=== PATIENT | female | born 1970 | race Caucasian/White ===

== ENCOUNTER 2018-01-09 23:24 | Observation (INO) | payer OTHER ==
[2018-01-10 00:08] LABS: Bilirubin Negative (Negative); Blood, Urine Negative (Negative); Clarity CLEAR (Clear); Glucose, Urine (Dipstick) Negative (Negative); Leukocyte Negative (Negative); Nitrite Negative (Negative); Protein, Urine (Dipstick) Negative (Neg-Trace); Specific Gravity, Urine 1.029 (1.002-1.036); Urobilinogen 0.2 mg/dL (0.2-1.0)
[2018-01-10 00:17] LABS: #Lymphocytes 2.3 thou/uL (1.20-3.40); #Monocytes 0.6 thou/uL (0.11-0.59); %Basophils 0.3 % (0.0-1.0); %Eosinophils 0.2 % (0.0-10.0); %Lymphocytes 23.5 % (21.0-51.0); %Neutrophils 70.1 % (42.0-75.0); Hemoglobin 13.5 g/dL (12.0-16.0); Mean Corpuscular HGB CONC 34.7 g/dL (32.0-36.0); Mean Corpuscular Hemoglobin 32.2 pg (27.0-31.0); Mean Corpuscular Volume 92.9 fL (78.0-98.0); Mean Platelet Volume 5.6 fL (7.4-10.4); Platelet Count 360 thou/uL (130-400); RBC Distribution Width 11.2 % (11.5-14.5); Red Blood Cell (RBC) Count 4.17 mill/uL (4.20-5.40)
[2018-01-10 00:40] LABS: ALT (SGPT) 16 U/L (8-55); AST (SGOT) 16 U/L (5-34); Albumin 4.5 g/dL (3.5-5.0); Alkaline Phosphatase 58 U/L (40-150); Anion Gap 11 mmol/L (10-20); BUN (Urea Nitrogen) 14 mg/dL (7.0-18.7); Bilirubin, Total 0.7 mg/dL (0.2-1.2); Calc. Creatinine Clearance 0 mL/min (70-130); Calcium 9.4 mg/dL (7.8-10.44); Carbon Dioxide 26 mmol/L (22-29); Chloride 103 mmol/L (98-107); Estimated GFR-MDRD 86; Globulin 3.1 g/dL (2.4-3.5); Glucose 109 mg/dL (70-105); Protein, Total 7.6 g/dL (6.0-8.3); Sodium 136 mmol/L (136-145)
[2018-01-10] MEDS ORDERED: Ketorolac Tromethamine 30 MG/ML VIAL ONE (01:11)
[2018-01-10] MEDS ORDERED: Ondansetron ODT 4 MG TAB ONE (01:11)
[2018-01-10] MEDS ORDERED: Piperacillin/Tazobactam 4.5 GM VIAL ONE (02:18)
[2018-01-10] MEDS ORDERED: Ondansetron ODT 4 MG TAB SL PRN (02:49)
[2018-01-10] MEDS ORDERED: Ondansetron HCl/PF 4 MG/2 ML Vial IVP PRN ×3 (02:49→12:30)
[2018-01-10] MEDS ORDERED: Ketorolac Tromethamine 30 MG/ML VIAL IVP PRN (02:52)
[2018-01-10] MEDS: Sodium Chloride 0.9% 1,000 ML IV SCH ×2 (03:20→08:53)
[2018-01-10 03:54] VITALS: BMI 30.9
[2018-01-10 06:25] LABS: Pregnancy Test - Urine (BHCG) Negative (Negative); Pregu Control Background? CLEAR/WHITE (CLR/WHITE); Pregu Control Bar Appear? YES (CONTROL BAR); Specific Gravity 1.029 (1.002-1.036)
[2018-01-10] MEDS ORDERED: Morphine 4 MG/ML Carpuject SLOW IVP PRN (08:07)
--- NOTE | 2018-01-10 08:23 | HP ---
CHIEF COMPLAINT: Right upper quadrant abdominal pain. HISTORY: The patient is a 47-year-old female with an 18-hour history of right upper quadrant pain as sociated with nausea, vomiting, no fever, no previous episodes. PAST MEDICAL HISTORY: Asthma. MEDICATIONS: Advair and Lipitor. PAST SURGICAL HISTORY: Left partial mastectomy, section, tubal ligation, knee surgery. She had debridement of a spider bite. FAMILY HISTORY: Hypertension, diabetes and hyperlipidemia. SOCIAL HISTORY: . No tobacco, no alcohol. She is an inmate. PHYSICAL EXAMINATION: VITAL SIGNS: Temperature 98.1, pulse 56, blood pressure 111/72. GENERAL: She is in pain. She is obese. HEENT: No jaundice. LUNGS: Clear. HEART: Regular rate and rhythm. ABDOMEN: Soft, tender in the right upper quadrant. Positive Rovsing. EXTREMITIES: Unremarkable. LABORATORY: White count 10, H&H 13 and 38, platelet count 360. Electrolytes are fine. LFTs normal. Ultrasound shows gallstones, thickened wall. ASSESSMENT: Acute cholecystitis. PLAN: Laparoscopic cholecystectomy. CONSENT: I have discussed the planned procedure as well as risk of bleeding, infection, injury to bi le duct, injury to bowel, need to open. She understands and gives informed consent.
[2018-01-10] MEDS ORDERED: cefOXitin 2 GM in Sodium Chloride 0.9% 100 ML IVPB SCH (08:30)
[2018-01-10] MEDS: Piperacillin/Tazobactam 4.5 GM in Sodium Chloride 0.9% 100 ML IVPB SCH ×2 (08:58→14:45)
--- NOTE | 2018-01-10 09:57 | ULT ---
PRELIMINARY REPORT/[facility]/EMERGENTY AFTER-HOURS PROCEDURE US Abdomen Limited, Right Upper Quadrant CLINICAL HISTORY: 47 years old, female; Pain and signs and symptoms; Nausea and vomiting; Abdominal pain; Localized; Ot her: Ruq - pain radiates to back TECHNIQUE: Real-time ultrasound of the right upper quadrant with image documentation. COMPARISON: No relevant prior studies available. FINDINGS: Liver: Liver is echogenic appearance compatible fatty liver. No intrahepatic bile duct dilation. Gallbladder: There is a nonmobile gallstone at the gallbladder neck. Pericholecystic fluid is present . There is gallbladder wall thickening measuring 3 mm. A positive sonographic James sign is reported . Common bile duct: CBD measures 4 mm in diameter. No stones. No dilation. Pancreas: Unremarkable as visualized. Right kidney: RIGHT kidney measures 9.4 x 4.2 x 4.1 cm. No stones. No hydronephrosis. IMPRESSION: Acute cholecystitis. Thank you for allowing us to participate in the care of your patient. Dictated and Authenticated by: Jonny Craft MD 01/10/2018 3:00 AM Central Time ([place] & [place]) FINAL REPORT EMERGENT AFTER HOURS RIGHT UPPER QUADRANT ULTRASOUND: DATE: 01/30/18. HISTORY: Right upper quadrant abdominal pain with pain radiating to the back. The patient has nausea and vomi ting. IMPRESSION: 1. Evidence for cholecystitis with a gallbladder calculus and borderline thickening of the gallbladd er wall with a trace amount of pericholecystic fluid. 2. The common duct is normal in caliber measuring 0.4 cm 3. Clinical correlation for cholecystitis is recommended. 4. Findings are in agreement with the preliminary report by [id number]. POS: NO
[2018-01-10] MEDS ORDERED: cefOXitin 2 GM VIAL ONE (10:29)
[2018-01-10] MEDS ORDERED: Sodium Chloride 0.9% 100 ML ONE (10:29)
[2018-01-10] MEDS ORDERED: Bupivacaine/Epinephrine 0.25% 30 ML VIAL ONE (10:36)
[2018-01-10] MEDS ORDERED: Fentanyl 250 MCG/5 ML VIAL ONE (10:42)
[2018-01-10] MEDS ORDERED: Ondansetron HCl/PF 4 MG/2 ML Vial ONE (11:22)
[2018-01-10] MEDS ORDERED: Dexamethasone 20 MG/5 ML VIAL ONE (11:22)
[2018-01-10] MEDS ORDERED: Lidocaine 1% PF 5 ML VIAL ONE (11:22)
[2018-01-10] MEDS ORDERED: PROPOFOL 200 MG/20 ML VIAL ONE (11:22)
[2018-01-10] MEDS ORDERED: Glycopyrrolate 0.2 MG/ML 5 ML SYRINGE ONE (11:22)
[2018-01-10] MEDS ORDERED: Promethazine HCl 25 MG/ML VIAL SLOW IVP PRN (12:15)
[2018-01-10] MEDS ORDERED: Promethazine HCl 25 MG/ML VIAL IM PRN ×2 (12:15→12:30)
[2018-01-10] MEDS ORDERED: Meperidine HCl/PF 25 MG/ML VIAL SLOW IVP PRN (12:15)
[2018-01-10] MEDS ORDERED: Mag-Al 1200 mg/1200 mg/30 ML UDCUP PO PRN (12:30)
[2018-01-10] MEDS ORDERED: Dextrose 50% Abboject 50 ML SYRINGE SLOW IVP PRN (12:30)
[2018-01-10] MEDS ORDERED: HYDROcodone/Acetaminophen 10/325 mg Tablet PO PRN (12:30)
[2018-01-10] MEDS ORDERED: Dextrose 5% in Water 1,000 ML IV PRN (12:30)
[2018-01-10] MEDS ORDERED: Calcium Carbonate 500 MG ChewTAB PO PRN (12:30)
[2018-01-10] MEDS ORDERED: hydrALAZINE 20 MG/ML VIAL SLOW IVP PRN (12:30)
--- NOTE | 2018-01-10 12:39 | OP ---
PREOPERATIVE DIAGNOSIS: Acute cholecystitis. SURGEON: Guillermo Neri M.D. PROCEDURE PERFORMED: Laparoscopic cholecystectomy. INDICATIONS: A 47-year-old female with a couple day history of right upper quadrant pain associated with nausea, vomiting, subjective fever, and leukocytosis. Ultrasound showing thickened gallbladder wall. FINDINGS: Acute cholecystitis with thickened gallbladder wall, small caliber cystic duct. PROCEDURE: After informed consent was obtained, the patient was taken to the operating room and give n general endotracheal anesthesia. She was placed in the supine position. The abdomen was prepped a nd draped in usual fashion. Local anesthesia infiltrated subcutaneously and deep. A subumbilical in cision was performed. The subcu divided sharply. The fascia grasped two stay sutures of [address] aced to either side of midline. Midline incised. Digital palpation revealed no local adhesions. A blunt 10-12 mm trocar inserted. Pneumoperitoneum was created to a pressure of 15 mmHg. Zero-degree laparoscope inserted under direct vision, three 5 mm ports placed subcostally. The gallbladder grasp ed advanced superiorly. The peritoneum was lysed distally and revealed cystic duct artery and critic al view. These structures were triply ligated and divided. Gallbladder removed from its fossa utili zing electrocautery, removed from the abdomen in an Endosac through the umbilical incision. Hemostas is was assured. Trocars and retractors removed. The fascia closed with interrupted 0 Vicryl suture. The skin closed with interrupted 4-0 Rapide. Dermabond applied. The patient tolerated the procedu re well and was transferred to recovery in good condition. Sponge and needle count verified correct x2.
[2018-01-10] MEDS ORDERED: Fentanyl 100 MCG/2 ML VIAL ONE (13:35)
[2018-01-10] MEDS: Lactated Ringer's 1,000 ML IV SCH ×2 (14:46→21:23)
[2018-01-10] MEDS: HYDROcodone/Acetaminophen 10/325 mg Tablet PO PRN (17:34)
[2018-01-10] MEDS: Famotidine 20 MG TAB PO SCH (21:06)
[2018-01-10] MEDS: Famotidine/PF 20 mg/2ml Vial SLOW IVP SCH (21:07)
[2018-01-10] MEDS ORDERED: Cepastat Lozenges 1 LOZ PO PRN ×2 (21:07)
[2018-01-11] MEDS: Lactated Ringer's 1,000 ML IV SCH (01:10)
[2018-01-11] MEDS: HYDROcodone/Acetaminophen 10/325 mg Tablet PO PRN ×2 (01:11→09:47)
[2018-01-11 06:16] LABS: #Lymphocytes 1.6 thou/uL (1.20-3.40); #Monocytes 0.6 thou/uL (0.11-0.59); #Neutrophils 4.1 thou/uL (1.40-6.50); %Basophils 0.1 % (0.0-1.0); %Eosinophils 0.1 % (0.0-10.0); %Lymphocytes 25.7 % (21.0-51.0); %Monocytes 8.8 % (0.0-10.0); %Neutrophils 65.3 % (42.0-75.0); Hemoglobin 10.9 g/dL (12.0-16.0); Mean Corpuscular HGB CONC 32.7 g/dL (32.0-36.0); Mean Corpuscular Hemoglobin 31.5 pg (27.0-31.0); Mean Corpuscular Volume 96.5 fL (78.0-98.0); Mean Platelet Volume 6.3 fL (7.4-10.4); Platelet Count 272 thou/uL (130-400); RBC Distribution Width 11.5 % (11.5-14.5); Red Blood Cell (RBC) Count 3.45 mill/uL (4.20-5.40); White Blood Cell (WBC) Count 6.3 thou/uL (4.8-10.8)
[2018-01-11 06:47] LABS: ALT (SGPT) 28 U/L (8-55); AST (SGOT) 22 U/L (5-34); Albumin 3.5 g/dL (3.5-5.0); Alkaline Phosphatase 46 U/L (40-150); Anion Gap 9 mmol/L (10-20); BUN (Urea Nitrogen) 8 mg/dL (7.0-18.7); Bilirubin, Total 0.4 mg/dL (0.2-1.2); Calc. Creatinine Clearance 104 mL/min (70-130); Calcium 8.7 mg/dL (7.8-10.44); Carbon Dioxide 26 mmol/L (22-29); Chloride 106 mmol/L (98-107); Estimated GFR-MDRD 83; Globulin 2.3 g/dL (2.4-3.5); Glucose 137 mg/dL (70-105); Lipase 17 U/L (8-78); Potassium 4.1 mmol/L (3.5-5.1); Protein, Total 5.8 g/dL (6.0-8.3); Sodium 137 mmol/L (136-145)
--- NOTE | 2018-01-11 08:23 | DIS ---
DATE OF ADMISSION: 01/10/2018 DATE OF DISCHARGE: 01/11/2018 DISCHARGE DIAGNOSIS: Acute cholecystitis. PROCEDURES DURING ADMISSION: Laparoscopic cholecystectomy. HOSPITAL COURSE: The patient was admitted, given IV fluids, IV antibiotics, taken to the operating r oom where she underwent a laparoscopic cholecystectomy. She was found to have a thickened gallbladde r wall with pericholecystic fluid, multiple gallstones, small cystic duct. Postoperatively, she has done well. She is tolerating a regular diet. Pain is controlled on p.o. medications. She is discha rged home on Tylenol #3, Zofran and doxycycline. She will follow up with me in 2 weeks.
[2018-01-11] MEDS ORDERED: Enoxaparin Sodium 40 MG/0.4 ML SYRINGE SC SCH (09:00)
[2018-01-11] MEDS: Famotidine 20 MG TAB PO SCH (09:47)
[2018-01-11] MEDS: Famotidine/PF 20 mg/2ml Vial SLOW IVP SCH (10:28)
[2018-01-11 12:28] VITALS: BP 110/69; TEMP 98.3
== END 2018-01-11 15:30 ==
LOC: ERS 23:24 → SURG A 01-10 03:10
PROVIDERS: ADMIT Surgery; ATTEND Surgery
PROC: 0FT44ZZ Resection of Gallbladder, Percutaneous Endoscopic Approach (ICD-10-PCS; principal; 2018-01-10)
DX: K80.00 Calculus of gallbladder with acute cholecystitis without obstruction (principal); J45.909 Unspecified asthma, uncomplicated; Z79.899 Other long term (current) drug therapy; Z88.1 Allergy status to other antibiotic agents
CPT/HCPCS: 36415; 76705; 80053; 81003; 81025; 83690; 85025; 88304; 96361; 96365; 96366; 96372; 96375; 96376; A4216; G0378; J0694; J1100; J1885; J2001; J2270; J2405; J2543; J2704; J3010; J7050; Q0162